=== PATIENT | female | born 1990 | race Caucasian/White ===

== ENCOUNTER 2020-01-10 06:58 | Inpatient (IN) | payer OTHER, SELFPAY ==
[2020-01-10] VITALS (137 sets, daily range): BP systolic 81–140; BP diastolic 52–95; PULSE 57–143; RESP 16; TEMP 36.4–37.5; O2SAT 90–100; BMI 38.3
[2020-01-10 08:14] LABS: Glucose Point of Care 96 (65-105)
[2020-01-10 08:17] LABS: Basophils Percent Auto 0.3 % (0.2-1.2); Eosinophils Absolute Auto 0.1 K/mm3 (0-0.3); Eosinophils Percent Auto 0.5 % (0-4.4); Hematocrit 32.6 % (37.0-47.0); Hemoglobin 10.6 g/dL (12.0-15.0); Immature Granulocyte Absolute 0.06 K/mm3 (0.00-0.031); Immature Granulocyte Percent A 0.5 % (0-0.5); Lymphocytes Absolute Auto 2.05 K/mm3 (0.9-3.2); Lymphocytes Percent Auto 18.1 % (18.3-44.2); Mean Corpuscular HGB Conc 32.5 g/dl (32-36); Mean Corpuscular Hemoglobin 25.6 pg (26-34); Mean Corpuscular Volume 78.7 fl (80-100); Monocytes Absolute Auto 0.6 K/mm3 (0.1-0.6); Monocytes Percent Auto 5.4 % (2.6-8.5); Neutrophils Absolute Auto 8.5 K/mm3 (1.3-6.7); Neutrophils Percent Auto 75.2 % (45.5-73.1); Platelet Count Result 339 k/mm3 (150-375); Red Blood Count 4.14 M/mm3 (4.2-5.4); Red Cell Distribution Width 14.8 % (11.5-14.5); White Blood Count 11.3 K/mm3 (4.5-10.0)
--- NOTE | 2020-01-10 08:28 | LDADM ---
This patient, Evangelina Ramsey, was admitted to Labor/Delivery/Recovery 105 on 01/10/20 at 06:58. Plans for labor, pain management and were discussed with patient. Patient/family oriented to hospital policies and general routines including ID bracelet, bed and alarms, visiting hours, pain management, procedures, bathroom and other care routines, personal items, smoking policy, room service/diet and guest tray routines, infant security routines, and visiting hours. Patient/Family are encouraged to report perceived risks to care and to ask questions if they do not understand what they are told or what they should do. See OBIX for further documentation.
[2020-01-10] MEDS: OXYTOCIN 30 UNITS/NS 500 ML 30 UNITS/500 ML BAG IV CONT (09:07)
[2020-01-10] MEDS: LACTATED RINGERS 1,000 ML 125 ML IV CONT ×3 (09:07→18:11)
[2020-01-10 09:10] LABS: HIV 1/2 Ab P24 Ag Result Negative (Negative)
[2020-01-10 11:49] LABS: Glucose Point of Care 87 (65-105)
--- NOTE | 2020-01-10 13:44 | WPDANESEPPF ---
Anes - Initial Pre Proc Eval Date/Time: 01/10/20 13:44 Surgeon: Tahir Hickey MD Pre Op Diagnosis: rup of membrames Patient Data Age: 29 Gender: F Height: 5 ft Weight: 89 kg Last Vital Signs Temp 37.1 C 01/10/20 13:27 Pulse 69 01/10/20 13:43 BP 109/63 01/10/20 13:43 Pulse Ox 97 01/10/20 13:40 Allergies Allergy/AdvReac Type Severity Reaction Status Date / Time latex Allergy Mild Redness of Verified 01/04/20 14:25 Skin Sulfa (Sulfonamide Allergy Unknown Vomiting Verified 01/04/20 14:25 Antibiotics) Home Medications Medication Instructions Recorded Confirmed Type PNV cmb#95-ferrous fumarate-FA 1 tablet PO DAILY 01/04/20 01/10/20 History [] ergocalciferol (vitamin D2) 1,250 mcg PO WEEKLY 01/04/20 01/10/20 History [Vitamin D2] insulin NPH isoph U-100 human 26 unit SUBCUT HS 01/04/20 01/10/20 History [Humulin N NPH U-100 Insulin] metformin 500 mg PO DAILY 01/04/20 01/10/20 History Laboratory Tests 01/10/20 01/10/20 01/10/20 08:09 08:11 08:11 WBC 11.3 K/mm3 H K/mm3 (4.5-10.0) RBC 4.14 M/mm3 L M/mm3 (4.2-5.4) Hgb 10.6 g/dL L g/dL (12.0-15.0) Hct 32.6 % L % (37.0-47.0) MCV 78.7 fl L fl (80-100) MCH 25.6 pg L pg (26-34) MCHC 32.5 g/dl g/dl (32-36) RDW 14.8 % H % (11.5-14.5) Plt Count 339 k/mm3 k/mm3 (150-375) MPV 11.0 fl H fl (7.4-10.4) Immature Gran % (Auto) 0.5 % % (0-0.5) Neut % (Auto) 75.2 % H % (45.5-73.1) Lymph % (Auto) 18.1 % L % (18.3-44.2) [place] % (Auto) 5.4 % % (2.6-8.5) Eos % (Auto) 0.5 % % (0-4.4) Baso % (Auto) 0.3 % % (0.2-1.2) Lymph # (Auto) 2.05 K/mm3 K/mm3 (0.9-3.2) [place] # (Auto) 0.6 K/mm3 K/mm3 (0.1-0.6) Eos # (Auto) 0.1 K/mm3 K/mm3 (0-0.3) Baso # (Auto) 0.0 K/mm3 K/mm3 (0.0-0.1) Abs Immat Gran (auto) 0.06 K/mm3 H K/mm3 (0.00-0.031) Absolute Neuts (auto) 8.5 K/mm3 H K/mm3 (1.3-6.7) Absolute Nucleated RBC 0.0 K/mm3 K/mm3 (0.0-0.012) Nucleated RBC % 0.0 % % (0.0-0.2) POC Capillary Glucose 96 mg/dl mg/dl (65-105) RPR Pending HIV 1&2 Ab/P24 Ag 4thGn Blood Type Antibody Screen 01/10/20 01/10/20 01/10/20 08:11 08:11 11:43 WBC RBC Hgb Hct MCV MCH MCHC RDW Plt Count MPV Immature Gran % (Auto) Neut % (Auto) Lymph % (Auto) [place] % (Auto) Eos % (Auto) Baso % (Auto) Lymph # (Auto) [place] # (Auto) Eos # (Auto) Baso # (Auto) Abs Immat Gran (auto) Absolute Neuts (auto) Absolute Nucleated RBC Nucleated RBC % POC Capillary Glucose 87 mg/dl mg/dl (65-105) RPR HIV 1&2 Ab/P24 Ag 4thGn Negative (Negative) Blood Type O Positive Antibody Screen Negative Patient hx anesthesia problems: none Family hx anesthesia problems: none [facility] Past Medical History Medical History (Updated 01/10/20 @ 13:44 by Rafi Linares MD) Diabetes Family History Family History Grandparent Diabetes mellitus Cancer Social History Social History Smoking status: Never smoker Alcohol intake: never Substance use: never Gender identity (if verbalized by the patient): Female Spiritual care concerns: No Anes - Eval Final PreProcedure Day of Procedure 01/10/20 13:44 Patient weight: obese Heart: regular rate and rhythm Lungs: clear to auscultation
[2020-01-10 14:06] LABS: Glucose Point of Care 94 (65-105)
[2020-01-10 16:49] LABS: Glucose Point of Care 84 (65-105)
--- NOTE | 2020-01-10 20:46 | WPDOBADMIT ---
Obstetrics - Admit Note Admission Note: 0950 am. At patient bedside contraction 01/20 doing okay. clear fluid when ruptured this morning record reviewed. No pertinent additions to the history and/or any subsequent changes in the physical findings that are not consistent with the expected course of the were found. Additions to the history and/or subsequent changes in the physical findings follow. None.
--- NOTE | 2020-01-10 20:47 | PM.OBPRVD ---
OB - Delivery Note Procedure Delivery date: 01/10/20 Procedure: FAVD events: Labor < 37 Weeks and Premature Rupture of Membrane Intrapartal events: Ineffective Pushing and Diabetes Delivery augmentation: pitocin Delivery monitor: external FHT, external uterine, internal FHT and internal uterine Route of delivery: forceps Indication for instrumentation: maternal exhaustion Laceration description: Perineal - 2nd Degree Delivery repair: vicryl Specimen: Yes Estimated blood loss (mL): 300 Anesthesia type: Epidural Disposition: floor [place] Baby Date of : 01/10/20 Time of : 20:26 Weeks of gestation at delivery: 36 Infant gender: Male Weight (pounds): 5 Weight (ounces): 9 presentation: vertex position: Right Occiput Posterior Placenta delivery description: Spontaneous cord vessel description: 3 Vessels score one minute: 9 score five minutes: 9
--- NOTE | 2020-01-10 20:51 | PM.DS ---
DS: Summary Time Spent with Patient Time attestation: Total time spent providing and/or coordinating discharge services: DS: Data Data Completed and Pending Labs on day of discharge: Labs from last 24 hours 01/10/20 01/10/20 01/10/20 16:34 13:58 11:43 WBC RBC Hgb Hct MCV MCH MCHC RDW Plt Count MPV Immature Gran % (Auto) Neut % (Auto) Lymph % (Auto) [place] % (Auto) Eos % (Auto) Baso % (Auto) Lymph # (Auto) [place] # (Auto) Eos # (Auto) Baso # (Auto) Abs Immat Gran (auto) Absolute Neuts (auto) Absolute Nucleated RBC Nucleated RBC % POC Capillary Glucose 84 94 87 RPR HIV 1&2 Ab/P24 Ag 4thGn Blood Type Antibody Screen 01/10/20 01/10/20 01/10/20 08:11 08:11 08:11 WBC RBC Hgb Hct MCV MCH MCHC RDW Plt Count MPV Immature Gran % (Auto) Neut % (Auto) Lymph % (Auto) [place] % (Auto) Eos % (Auto) Baso % (Auto) Lymph # (Auto) [place] # (Auto) Eos # (Auto) Baso # (Auto) Abs Immat Gran (auto) Absolute Neuts (auto) Absolute Nucleated RBC Nucleated RBC % POC Capillary Glucose RPR Pending HIV 1&2 Ab/P24 Ag 4thGn Negative Blood Type O Positive Antibody Screen Negative 01/10/20 01/10/20 08:11 08:09 WBC 11.3 H RBC 4.14 L Hgb 10.6 L Hct 32.6 L MCV 78.7 L MCH 25.6 L MCHC 32.5 RDW 14.8 H Plt Count 339 MPV 11.0 H Immature Gran % (Auto) 0.5 Neut % (Auto) 75.2 H Lymph % (Auto) 18.1 L [place] % (Auto) 5.4 Eos % (Auto) 0.5 Baso % (Auto) 0.3 Lymph # (Auto) 2.05 [place] # (Auto) 0.6 Eos # (Auto) 0.1 Baso # (Auto) 0.0 Abs Immat Gran (auto) 0.06 H Absolute Neuts (auto) 8.5 H Absolute Nucleated RBC 0.0 Nucleated RBC % 0.0 POC Capillary Glucose 96 RPR HIV 1&2 Ab/P24 Ag 4thGn Blood Type Antibody Screen Discharge Plan Discharge Attending physician on discharge: Tahir Hickey Discharging Clinician: Tahir Hickey Patient Disposition: Home, Self-Care Activity: january shower Diet: regular and diabetic Patient Instructions: Antibiotic Form Stand Alone Forms: General Discharge Information Follow-up/Referrals: Tahir Hickey MD [Physician] - Discharge Medications: No Action metformin 500 mg Tablet 500 mg PO DAILY RF: 0 Humulin N NPH U-100 Insulin 100 unit/mL Suspension 26 unit SUBCUT HS RF: 0 ergocalciferol (vitamin D2) [Vitamin D2] 1,250 mcg (50,000 unit) Capsule 1,250 mcg PO WEEKLY RF: 0 PNV cmb#95-ferrous fumarate-FA [] 28 mg iron- 800 mcg Tablet 1 tablet PO DAILY RF: 0 Date of admission: 01/10/20 06:58 Primary Care Provider: Magui,Leilani Sheikh Admitting Provider: Tahir Hickey Attending physician on admission: Tahir Hickey
[2020-01-10] MEDS: OXYTOCIN 30 UNITS/NS 500 ML 30 UNITS/500 ML BAG 125 UNITS IV CONT (21:00)
[2020-01-10] MEDS: metFORMIN HCL 500 MG TABLET PO (21:31)
[2020-01-10 21:33] LABS: Glucose Point of Care 81 (65-105)
[2020-01-10] MEDS: IBUPROFEN 600 MG TABLET PO (22:19)
[2020-01-10] MEDS: WITCH HAZEL 40 PADS 1 PAD TOPICAL (22:19)
[2020-01-10] MEDS: BENZOCAINE 20% AER SPR (*SP) 56 GM CAN 1 SPRAY TOPICAL (22:20)
--- NOTE | 2020-01-10 23:03 | OBPPTRN ---
Patient transferred to post room #290 via wheelchair with baby in bassinet. Support person present. Oriented to unit, room, information board, rooming in, admission packet and security measures. Patient verbalizes understanding.
[2020-01-11] MEDS: IBUPROFEN 600 MG TABLET PO ×3 (04:21→16:34)
--- NOTE | 2020-01-11 05:07 | PC.NURSE ---
at 0507, patient's fasting bgl was 67. This nurse gave patient two juices and some crackers with peanut butter, and called Dr Hickey to notify her that 500mg metformin and 12 units of NPH insulin were given at 22:18 on 01/09 in Labor Recovery before coming to . At that time, patient's blood glucose level was 81.
[2020-01-11 05:21] LABS: Glucose Point of Care 67 (65-105)
[2020-01-11 05:30] LABS: Hemoglobin 9.2 g/dL (12.0-15.0)
[2020-01-11 06:45] VITALS: BP 103/62; PULSE 72; RESP 18; TEMP 36.6; O2SAT 99
--- NOTE | 2020-01-11 07:07 | PM.OBPNVD ---
OB - PN: Subj Subjective Date/time seen: 01/11/20 07:07 Patient comments: no complaints baby status: doing well feeding status: exclusively breast feeding OB - PN: Obj Data Labs CBC & Chem 7: 01/11/20 05:03 Labs: Laboratory Results - last 24 hr 01/10/20 01/10/20 01/10/20 08:09 08:11 08:11 WBC 11.3 H RBC 4.14 L Hgb 10.6 L Hct 32.6 L MCV 78.7 L MCH 25.6 L MCHC 32.5 RDW 14.8 H Plt Count 339 MPV 11.0 H Immature Gran % (Auto) 0.5 Neut % (Auto) 75.2 H Lymph % (Auto) 18.1 L [place] % (Auto) 5.4 Eos % (Auto) 0.5 Baso % (Auto) 0.3 Lymph # (Auto) 2.05 [place] # (Auto) 0.6 Eos # (Auto) 0.1 Baso # (Auto) 0.0 Abs Immat Gran (auto) 0.06 H Absolute Neuts (auto) 8.5 H Absolute Nucleated RBC 0.0 Nucleated RBC % 0.0 POC Capillary Glucose 96 HIV 1&2 Ab/P24 Ag 4thGn Negative Blood Type Antibody Screen 01/10/20 01/10/20 01/10/20 08:11 11:43 13:58 WBC RBC Hgb Hct MCV MCH MCHC RDW Plt Count MPV Immature Gran % (Auto) Neut % (Auto) Lymph % (Auto) [place] % (Auto) Eos % (Auto) Baso % (Auto) Lymph # (Auto) [place] # (Auto) Eos # (Auto) Baso # (Auto) Abs Immat Gran (auto) Absolute Neuts (auto) Absolute Nucleated RBC Nucleated RBC % POC Capillary Glucose 87 94 HIV 1&2 Ab/P24 Ag 4thGn Blood Type O Positive Antibody Screen Negative 01/10/20 01/10/20 01/11/20 16:34 21:30 05:03 WBC RBC Hgb 9.2 L Hct 29.0 L MCV MCH MCHC RDW Plt Count MPV Immature Gran % (Auto) Neut % (Auto) Lymph % (Auto) [place] % (Auto) Eos % (Auto) Baso % (Auto) Lymph # (Auto) [place] # (Auto) Eos # (Auto) Baso # (Auto) Abs Immat Gran (auto) Absolute Neuts (auto) Absolute Nucleated RBC Nucleated RBC % POC Capillary Glucose 84 81 HIV 1&2 Ab/P24 Ag 4thGn Blood Type Antibody Screen 01/11/20 05:07 WBC RBC Hgb Hct MCV MCH MCHC RDW Plt Count MPV Immature Gran % (Auto) Neut % (Auto) Lymph % (Auto) [place] % (Auto) Eos % (Auto) Baso % (Auto) Lymph # (Auto) [place] # (Auto) Eos # (Auto) Baso # (Auto) Abs Immat Gran (auto) Absolute Neuts (auto) Absolute Nucleated RBC Nucleated RBC % POC Capillary Glucose 67 HIV 1&2 Ab/P24 Ag 4thGn Blood Type Antibody Screen OB - PN A/P Assessment and Plan (1) (normal spontaneous vaginal delivery): Code(s): O80 - Encounter for full-term uncomplicated delivery Status: Acute Assessment and Plan: continue with pp care. (2) Type 2 diabetes mellitus: Code(s): E11.9 - Type 2 diabetes mellitus without complications Status: Acute Assessment and Plan: decreased insulin from 26 to 12 units at bedtime continue fasting accuchecks Time Spent With Patient Time: Total time spent is greater than 50% in coordination of care (as documented) at patient's floor/unit and/or counseling patient: Exam Const: General: comfortable
[2020-01-11 07:25] LABS: Rapid Plasma Reagin Non-Reactive (NonReactive)
[2020-01-11] MEDS: MULTIVIT/MIN/PREN/FOL AC/IRON TABLET 1 TAB PO (09:21)
[2020-01-11] MEDS: LANOLIN (LANSINOH) 7.5 GM CREAM 1 APPLIC TOPICAL (09:22)
--- NOTE | 2020-01-11 10:51 | WPDANLDPN2 ---
Anes-Prog Note L&D Date/Time: 01/11/20 10:51 Comfortable throughout: labor and delivery Neuraxial method: epidural Epidural/Spinal procedure site: clean & non-tender Neuro status: Neuro function grossly intact. Cardiovascular status: normal Respiratory status: normal Airway patency: baseline Mental status: baseline Post-Op hydration status: normal Vital Signs: Last Vital Signs Temp 36.6 C 01/11/20 06:45 Pulse 72 01/11/20 06:45 Resp 18 01/11/20 06:45 BP 103/62 01/11/20 06:45 Pulse Ox 99 01/11/20 06:45 I/O: Intake & Output 01/10/20 01/11/20 01/11/20 23:59 07:59 15:59 Intake Total 1000 Output Total 300 Balance 700 Post-procedural complaints: none Patient feedback: Patient satisfied with anesthetic care.
--- NOTE | 2020-01-11 12:10 | PC.NURSE ---
Consulted with patient, mother states has had issues with latching has been using a nipple shield for all feedings. Infant is unable to latch due to flat nipples and is unable to draw nipple in. Discussed nipple shield precautions and possible complications. Instructions given on application and cleaning of nipple shield Reviewed feeding cues, frequencies, durations of feeding, milk supply, feeding/elimination flow sheet and signs of adequate intake. Demonstrated stimulation techniques to wake infant for feeding. Assisted with to breast with nipple shield. Reviewed positioning/alignment in football, holding breast in n C hold and guided asymmetrical latch on. Infant was able to latch correctly nursing with long draws and occasional swallowing noted. Reviewed milk production and need for additional stimulation for milk supply and need to initiate pumping. Suggested feeding plan to attempt infant to breast every three hours, before if feeding cues noted. Allow to attempt for 10-15 min, if is effectively nursing allow to nurse up to 20 min per breast. Instructed mother to call out for RN assistance if she is unable to latch for feeding or she has discomfort with nursing. Instructed feeding should be initiated three hours from start of last feeding or if feeding cues are noted before. Mother voiced understanding of information.
[2020-01-11] MEDS: POLYSACCHARIDE IRON COMPLEX 150 MG CAPSULE PO (16:34)
[2020-01-11 19:55] VITALS: BP 115/62; PULSE 68; RESP 13; TEMP 36.5; O2SAT 100
[2020-01-12] MEDS: IBUPROFEN 600 MG TABLET PO ×2 (00:14→08:19)
[2020-01-12] MEDS: metFORMIN HCL 500 MG TABLET PO (00:40)
[2020-01-12] MEDS: ACETAMINOPHEN 325 MG TABLET 650 MG PO (05:02)
[2020-01-12 07:41] LABS: Glucose Point of Care 70 (65-105)
[2020-01-12] MEDS: MULTIVIT/MIN/PREN/FOL AC/IRON TABLET 1 TAB PO (08:19)
[2020-01-12] MEDS: DOCUSATE SODIUM 100 MG CAPSULE PO (08:19)
[2020-01-12] MEDS: POLYSACCHARIDE IRON COMPLEX 150 MG CAPSULE PO (08:22)
[2020-01-12 08:55] VITALS: BP 117/69; PULSE 73; RESP 16; TEMP 36.4; O2SAT 99
--- NOTE | 2020-01-12 11:58 | P.PNOB_ITS ---
OB - PN: Subj Subjective Date/time seen: 01/12/20 11:58 Patient comments: no complaints, pain well controlled and flatus present [place] baby status: doing well [place] feeding status: breast and bottle feeding OB - PN: Obj Data Labs CBC & Chem 7: 01/11/20 05:03 Labs: Laboratory Results - last 24 hr 01/12/20 07:38 POC Capillary Glucose 70 OB - PN A/P Assessment and Plan (1) Type 2 diabetes mellitus: Code(s): E11.9 - Type 2 diabetes mellitus without complications Status: Acute Assessment and Plan: d/c insulin plan to continue with metformin 1000 mg daily with f/u in 6 weeks (2) (normal spontaneous vaginal delivery): Code(s): O80 - Encounter for full-term uncomplicated delivery Status: Acute Assessment and Plan: d/c home (3) Anemia: Code(s): D64.9 - Anemia, unspecified Status: Acute Assessment and Plan: continue with iron and colace Time Spent With Patient Time: Total time spent is greater than 50% in coordination of care (as documented) at patient's floor/unit and/or counseling patient: Exam GI: Other: fundus at umbilicus
--- NOTE | 2020-01-12 13:30 | PC.NURSE ---
Consult nikia pt., mother reports infant began bili lights during the night and she began supplementing after each feeding. Mother is able to independently latch with appropriate positioning/alignment using nipple shield. She denies any nipple discomfort, is feeding as required and waking to feed if needed. Infant is unable to latch without shield, and requires 30 mls supplementation after each . Infant is more eager with attempts and duration. Mother will continue to pump and offer EBM as available as part of supplement. Infant is currently meeting outcomes for weight, output, jaundice and feeding frequencies. Mother states she feels comfortable with current feeding plan of bottle/ at home. Discussed signs to recognize infant is ready to begin weaning from supplementation and shield. Reviewed transition to breast milk, signs of adequate intake, and engorgement/relief. Instructed to call ICP if intake/output less than required. Reviewed regular medications mother is taking. Information provided per Dasia. Reviewed community resources on the [facility] website and in the Mom/Baby guide. Information on outpatient services provided. Mother has no further questions at this time.
--- NOTE | 2020-01-12 20:56 | PC.NURSE ---
[id number] Hickey initially, then Dr. Rouse to clarify pt's Metformin dose for discharge home; Per Dr. Rouse, pt to continue Metformin 500mg at HS, and call Dr. Hickey next week. Pt advised and agreed.
[2020-01-15 09:35] VITALS: BP 140/80; PULSE 71; RESP 18; TEMP 36.6
== END 2020-01-12 18:05 | disposition home or self-care (01) | DRG 805 ==
LOC: ANHLDR 20:52 → ANHOB2 23:17
PROVIDERS: Admitting Provider Obstetrics & Gynecology; PCP Family Medicine; Visit Provider Obstetrics & Gynecology
DX: O42.913 Preterm premature rupture of membranes, unspecified as to length of time between rupture and onset of labor, third trimester (principal); O60.14X0 Preterm labor third trimester with preterm delivery third trimester, not applicable or unspecified; Z37.0 Single live birth; O24.12 Pre-existing type 2 diabetes mellitus, in childbirth; Z3A.36 36 weeks gestation of pregnancy; O70.1 Second degree perineal laceration during delivery; O75.81 Maternal exhaustion complicating labor and delivery; O99.02 Anemia complicating childbirth; D64.9 Anemia, unspecified
CPT/HCPCS: 36415; 84112; 85014; 85018; 85025; 86592; 86703; 86850; 86900; 86901; 88307; A9270; G0432; J1815; J2590; J2795; J7120